=== PATIENT | female | born 1950 | race Caucasian/White ===

== ENCOUNTER → 2017-01-08 | Outpatient (CLI) | payer OTHER ==
[~2017-01-08] MED LIST: CALCIUM 600/VIT1 CAP PO; CARDIZEM CD240 MG PO; FOSAMAX70 MG PO; LEVAQUIN750 M1 PO; LISINOPRIL10 MG PO; MUCINEX ER600 MG PO; PREDNICOT20 MG PO; SYNTHROID,LEVO88 MCG PO; SYNTHROID0.1 MG PO; TESSALON PERLE200 MG PO; VITAMIN D1000 IU PO; ZESTRIL20 MG PO
== END | disposition home or self-care (01) ==
LOC: MAMMO 09:00
DX: Z12.31 Encounter for screening mammogram for malignant neoplasm of breast (principal)

== ENCOUNTER → 2017-05-07 | Outpatient (CLI) | payer OTHER | END | disposition home or self-care (01) | LOC: RAD 08:12 | DX: M79.662 Pain in left lower leg (principal) ==

== ENCOUNTER → 2017-12-23 | Outpatient (CLI) | payer OTHER | END | disposition home or self-care (01) | LOC: LAB 08:22 | DX: E03.9 Hypothyroidism, unspecified (principal) ==

== ENCOUNTER → 2018-01-12 | Outpatient (CLI) | payer OTHER | END | disposition home or self-care (01) | LOC: RAD 11-10 11:00 → MAMMO 01:48 | DX: Z12.31 Encounter for screening mammogram for malignant neoplasm of breast (principal); M81.0 Age-related osteoporosis without current pathological fracture ==

== ENCOUNTER 2018-06-12 12:57 | Emergency (ER) | payer OTHER ==
[~2018-06-12] VITALS: Ht 12.7 cm; Wt 83.9 kg
[2018-06-12 12:57] VITALS: BP 110/69
== END 2018-06-12 14:55 | disposition home or self-care (01) ==
LOC: ED 12:57
DX: S40.211A Abrasion of right shoulder, initial encounter (principal); S50.311A Abrasion of right elbow, initial encounter; S80.211A Abrasion, right knee, initial encounter; I10 Essential (primary) hypertension; F17.200 Nicotine dependence, unspecified, uncomplicated; Z91.040 Latex allergy status; Z88.0 Allergy status to penicillin; Z79.899 Other long term (current) drug therapy; W18.39XA Other fall on same level, initial encounter; Y93.89 Activity, other specified; Y92.89 Other specified places as the place of occurrence of the external cause; Y99.8 Other external cause status

== ENCOUNTER → 2019-02-28 | Outpatient (CLI) | payer OTHER ==
[~2019-02-28] MED LIST changes: +ASPIRIN CHEWABL81 MG PO; +LIPITOR40 MG PO; +PLAVIX75 M1 PO; +VITAMIN D-32000 UNI1 PO
[2019-02-28 08:09] LABS: ALBUMIN 3.4 gm/dl (3.1-4.5); BILIRUBIN, DIRECT 0.1 mg/dL (0.0-0.2); TOTAL PROTEIN 6.9 gm/dL (6.4-8.2)
== END | disposition home or self-care (01) ==
LOC: LAB 07:09
PROVIDERS: Internal Medicine Cardiovascular Disease
DX: I74.9 Embolism and thrombosis of unspecified artery (principal)

== ENCOUNTER → 2019-03-24 | Outpatient (CLI) | payer OTHER | END | disposition home or self-care (01) | LOC: MAMMO 00:30 | DX: Z12.31 Encounter for screening mammogram for malignant neoplasm of breast (principal) ==

== ENCOUNTER → 2020-12-07 | Outpatient (CLI) | payer OTHER | END | disposition home or self-care (01) | LOC: US 08:21 | PROVIDERS: ATTEND Internal Medicine | DX: M66.0 Rupture of popliteal cyst (principal); R60.0 Localized edema ==

== ENCOUNTER → 2021-12-12 | Day surgery (SDC) | payer OTHER ==
[2021-12-09 14:25] VITALS: BP 150/60
[~2021-12-12] VITALS: Ht 157.4 cm; Wt 78.0 kg
[~2021-12-12] MED LIST changes: -CARDIZEM CD240 MG PO; +CARDIZEM CD360 MG PO; +COLACE100 MG PO; +PERCOCET 5-3251 EACH PO; +ZESTORETIC 20-1 EACH PO; -ZESTRIL20 MG PO; +ZOFRAN4 MG PO
[2021-12-12 08:09] VITALS: BP 139/59
[2021-12-12 10:58] VITALS: BP 136/53
[2021-12-12 11:13] VITALS: BP 142/53
[2021-12-12 11:28] VITALS: BP 139/50
== END | disposition home or self-care (01) ==
LOC: SDC 10-10 13:15
PROVIDERS: ATTEND Surgery
DX: N63.10 Unspecified lump in the right breast, unspecified quadrant (principal); I10 Essential (primary) hypertension; E78.00 Pure hypercholesterolemia, unspecified; Z86.718 Personal history of other venous thrombosis and embolism; E03.9 Hypothyroidism, unspecified; F17.210 Nicotine dependence, cigarettes, uncomplicated; Z79.899 Other long term (current) drug therapy; Z20.822 Contact with and (suspected) exposure to COVID-19

== ENCOUNTER → 2022-04-22 | Outpatient (CLI) | payer OTHER | LOC: RAD 10:00 | PROVIDERS: ATTEND Internal Medicine | DX: M81.0 Age-related osteoporosis without current pathological fracture (principal) ==